=== PATIENT | female | born 1985 | race Caucasian/White ===

== ENCOUNTER 2019-12-11 22:04 | Inpatient (IN) | payer OTHER, SELFPAY ==
--- NOTE | ~2019-12-11 | US_ITS ---
EXAMINATION: US OB limited EXAM DATE: 12/11/2019 23:18 INDICATION: Decreased movement, no audible heart rate. Third trimester. TECHNIQUE: Pelvic obstetrical transabdominal sonogram was performed by a technologist. There are mu ltiple grayscale and Doppler images available for interpretation. There are no earlier studies of th is gestation for comparison. FINDINGS: There is a third trimester intrauterine gestation without heart tones or motion . Fetus is in vertex presentation. There is ascites. There is a posterior fundally located plac enta. No retroplacental hemorrhage. IMPRESSION: demise. Reviewed, dictated and finalized at location G. IMPRESSION: demise.
[2019-12-12] VITALS (63 sets, daily range): BP systolic 85–143; BP diastolic 47–103; PULSE 55–195; TEMP 36.8–37.4; O2SAT 95–100; BMI 26.6
--- NOTE | 2019-12-12 00:18 | LDADM ---
This patient, Kayleigh Kaufman, was admitted to Labor/Delivery/Recovery 109 on 12/11/19 at 22:04. Plans for labor, pain management and were discussed with patient. Patient/family oriented to hospital policies and general routines including ID bracelet, bed and alarms, visiting hours, pain management, procedures, bathroom and other care routines, personal items, smoking policy, room service/diet and guest tray routines, infant security routines, and visiting hours. Patient/Family are encouraged to report perceived risks to care and to ask questions if they do not understand what they are told or what they should do. See OBIX for further documentation.
[2019-12-12 00:20] LABS: Basophils Percent Auto 0.2 % (0.2-1.2); Eosinophils Absolute Auto 0.1 K/mm3 (0-0.3); Hematocrit 37.5 % (37.0-47.0); Hemoglobin 13.2 g/dL (12.0-15.0); Immature Granulocyte Absolute 0.05 K/mm3 (0.00-0.031); Immature Granulocyte Percent A 0.6 % (0-0.5); Lymphocytes Percent Auto 25.2 % (18.3-44.2); Mean Corpuscular HGB Conc 35.2 g/dl (32-36); Mean Corpuscular Hemoglobin 31.4 pg (26-34); Mean Corpuscular Volume 89.3 fl (80-100); Mean Platelet Volume 10.3 fl (7.4-10.4); Monocytes Absolute Auto 0.5 K/mm3 (0.1-0.6); Monocytes Percent Auto 5.9 % (2.6-8.5); Neutrophils Absolute Auto 5.9 K/mm3 (1.3-6.7); Neutrophils Percent Auto 67.1 % (45.5-73.1); Platelet Count Result 211 k/mm3 (150-375); White Blood Count 8.7 K/mm3 (4.5-10.0)
[2019-12-12] MEDS: MISOPROSTOL 50 MCG TABLET VAGINAL ×2 (00:28→04:33)
[2019-12-12 00:35] LABS: Glucose 101 mg/dL (65-105)
[2019-12-12 01:03] LABS: Free T4 Free Thyroxine 1.08 ng/mL (0.78-2.19)
[2019-12-12 01:15] LABS: HIV 1/2 Ab P24 Ag Result Negative (Negative)
[2019-12-12 06:58] LABS: Rapid Plasma Reagin Non-Reactive (NonReactive)
--- NOTE | 2019-12-12 07:57 | WPDOBADMIT ---
Obstetrics - Admit Note Admission Note: record reviewed. No pertinent additions to the history and/or any subsequent changes in the physical findings that are not consistent with the expected course of the were found. Additions to the history and/or subsequent changes in the physical findings follow. Here with demise at 32 wks with known with Down syndrome. Patient and appropriately grieving. Had 2 doses of cytotec overnight. Now 2-/-2/ with thick old bloody fluid. Start Pitocin.
[2019-12-12] MEDS: OXYTOCIN 30 UNITS/NS 500 ML 30 UNITS/500 ML BAG 125 UNITS IV CONT (08:20)
[2019-12-12] MEDS: LACTATED RINGERS 1,000 ML 125 ML IV CONT (08:20)
[2019-12-12] MEDS: ONDANSETRON INJ 4 MG/2 ML VIAL IV PUSH (09:58)
--- NOTE | 2019-12-12 10:12 | PM.OBPRVD ---
OB - Delivery Note Procedure Delivery date: 12/12/19 events: Labor Induction Intrapartal events: None Induction method: AROM, per misoprostol protocol and per pitocin protocol Delivery monitor: external uterine Route of delivery: Laceration description: None Specimen: Yes (placenta) Estimated blood loss (mL): 50 Anesthesia type: Epidural Disposition: floor [place] Baby Weeks of gestation at delivery: 32 gender: Male presentation: vertex Placenta delivery description: Spontaneous cord vessel description: 3 Vessels score one minute: 0 score five minutes: 0
--- NOTE | 2019-12-12 10:13 | PM.OBDSVD ---
DS: Diagnosis Discharge Diagnosis (1) 32 weeks gestation of : Code(s): Z3A.32 - 32 weeks gestation of Status: Acute (2) IUFD (intrauterine ): Status: Acute (3) Trisomy 21 of fetus in current [place] : Code(s): O35.1XX0 - Maternal care for (suspected) chromosomal abnormality in fetus, not applicable or unspecified Status: Acute OB - DS: Summary OB Procedures : Ultrasound OB Procedures Intrapartum: Spontaneous Vag Delivery OB Procedures: : None Peripartum Data Delivery Method: Natural Vaginal Laceration description: None complications: none Status at Discharge Functional status at discharge: independent ambulation Overall status at discharge: patient is progressing back to baseline Time Spent with Patient Time attestation: Total time spent providing and/or coordinating discharge services: DS: Data Data Completed and Pending Labs on day of discharge: Labs from last 24 hours 12/11/19 12/11/19 12/11/19 23:55 23:55 23:55 WBC RBC Hgb Hct MCV MCH MCHC RDW Plt Count MPV Immature Gran % (Auto) Neut % (Auto) Lymph % (Auto) [place] % (Auto) Eos % (Auto) Baso % (Auto) Lymph # (Auto) [place] # (Auto) Eos # (Auto) Baso # (Auto) Abs Immat Gran (auto) Absolute Neuts (auto) Absolute Nucleated RBC Nucleated RBC % LA PTT Screen dRVVT Screen dRVVT Additional Test Lupus Anticoag Interp Glucose TSH Free T4 Beta-2-GPI IgG Ab Pending Beta-2-GPI IgA Ab Pending Beta-2-GPI IgM Ab Pending Anti-Cardiolipin IgG Ab Anti-Cardiolipin IgA Ab Anti-Cardiolipin IgM Ab RPR CMV IgG Ab Pending CMV IgM Ab Pending HIV 1&2 Ab/P24 Ag 4thGn Negative Blood Type A Positive Antibody Screen Negative KB Hemoglobin Negative 12/11/19 12/11/19 12/11/19 23:55 23:55 23:55 WBC RBC Hgb Hct MCV MCH MCHC RDW Plt Count MPV Immature Gran % (Auto) Neut % (Auto) Lymph % (Auto) [place] % (Auto) Eos % (Auto) Baso % (Auto) Lymph # (Auto) [place] # (Auto) Eos # (Auto) Baso # (Auto) Abs Immat Gran (auto) Absolute Neuts (auto) Absolute Nucleated RBC Nucleated RBC % LA PTT Screen dRVVT Screen dRVVT Additional Test Lupus Anticoag Interp Glucose TSH Free T4 1.08 Beta-2-GPI IgG Ab Beta-2-GPI IgA Ab Beta-2-GPI IgM Ab Anti-Cardiolipin IgG Ab Pending Anti-Cardiolipin IgA Ab Pending Anti-Cardiolipin IgM Ab Pending RPR Non-reactive CMV IgG Ab CMV IgM Ab HIV 1&2 Ab/P24 Ag 4thGn Blood Type Antibody Screen KB Hemoglobin 12/11/19 12/11/19 12/11/19 23:55 23:55 23:55 WBC 8.7 RBC 4.20 Hgb 13.2 Hct 37.5 MCV 89.3 MCH 31.4 MCHC 35.2 RDW 12.0 Plt Count 211 MPV 10.3 Immature Gran % (Auto) 0.6 H Neut % (Auto) 67.1 Lymph % (Auto) 25.2 [place] % (Auto) 5.9 Eos % (Auto) 1.0 Baso % (Auto) 0.2 Lymph # (Auto) 2.20 [place] # (Auto) 0.5 Eos # (Auto) 0.1 Baso # (Auto) 0.0 Abs Immat Gran (auto) 0.05 H Absolute Neuts (auto) 5.9 Absolute Nucleated RBC 0.0 Nucleated RBC % 0.0 LA PTT Screen Pending dRVVT Screen Pending dRVVT Additional Test Pending Lupus Anticoag Interp Pending Glucose 101 TSH 3.030 Free T4 Beta-2-GPI IgG Ab Beta-2-GPI IgA Ab Beta-2-GPI IgM Ab Anti-Cardiolipin IgG Ab Anti-Cardiolipin IgA Ab Anti-Cardiolipin IgM Ab RPR CMV IgG Ab CMV IgM Ab HIV 1&2 Ab/P24 Ag 4thGn Blood Type Antibody Screen KB Hemoglobin Discharge Plan Discharge Attending physician on discharge: Tia Whitehead Consulting providers: Bg Cruz Discharging Clinician: Tia Whitehead Anticipated Discharge Date/Time: 12/13/19 07:1
--- NOTE | 2019-12-12 15:06 | PC.NURSE ---
1506- called, pt and want to be discharged home. Order received to discharge around dinner. Pt given all mementos, filled out share paperwork, and has had pictures taken.
--- NOTE | 2019-12-12 17:33 | PC.NURSE ---
1710-Pt and sleeping, woke her and told her to let me know when they are ready to leave that they can stay and sleep as long as they want.
[2019-12-15 03:42] LABS: Lupus dRVVT 1:1 Mix Interpreta Not Indicated; Lupus dRVVT Screen 35 sec (<=45); PTT-LA Screen 31 sec (<=40)
[2019-12-15 14:04] LABS: CMV IgG Antibody <0.60 U/mL (<0.60)
[2019-12-16 02:38] LABS: Anti Cardio Antibody IgM 15 MPL (<=12); Anti Cardiolipin Antibody IgA <11 APL (<=11); Anti Cardiolipin Antibody IgG <14 GPL (<=14)
[2019-12-18 09:09] LABS: CMV IgM Antibody <30.00 AU/mL (<30.00)
== END 2019-12-12 18:00 | disposition home or self-care (01) | DRG 807 ==
LOC: ANHOBPP 23:38 → ANHLDR 23:39 → ANHOBPP 12-12 09:53
PROVIDERS: Admitting Provider Obstetrics & Gynecology; Visit Provider Obstetrics & Gynecology Gynecology
DX: O36.4XX0 Maternal care for intrauterine death, not applicable or unspecified (principal); Z37.1 Single stillbirth; Z3A.32 32 weeks gestation of pregnancy; O35.1XX0 Maternal care for (suspected) chromosomal abnormality in fetus, not applicable or unspecified
CPT/HCPCS: 36415; 76815; 82947; 84439; 84443; 85025; 85460; 85613; 85730; 86146; 86147; 86592; 86644; 86645; 86703; 86850; 86900; 86901; 88307; A9270; G0432; J2405; J2590; J2795; J3010; J7120

== ENCOUNTER → 2020-05-14 15:35 | Outpatient (CLI) | payer OTHER, SELFPAY ==
--- NOTE | ~2020-05-14 | US_ITS ---
EXAMINATION: US OB transvaginal DATE: 05/14/2020 16:17 INDICATION: First trimester dating, history of spontaneous TECHNIQUE: Real-time pelvic transabdominal and transvaginal ultrasound was performed. COMPARISON: None. FINDINGS: The uterus measures 11 x 6.4 x 7.5 cm. There is an intrauterine gestational sac. There is a 1.2 x 1.4 x 1.0 cm complex hypoechoic area adjacent to the gestational sac. A yolk sac is identifie d. heart motion is identified measuring 130 beats per minute (bpm) by M-mode Doppler. The crown rump length measures 10 mm, which correlates with an estimated gestational age of 7 weeks and 1 day(s) (+/-) 5 day(s). The ovaries are not visualized however no adnexal abnormality is seen. There is trace free fluid in t he pelvis. IMPRESSION: 1. Live intrauterine with an estimated gestational age of 7 weeks and 1 day(s) (+/-) 5 day( s) and an estimated delivery date of 12/30/2020. 2. Small subchorionic hematoma. Reviewed, dictated and finalized at location A. IMPRESSION: 1. Live intrauterine with an estimated gestational age of 7 weeks and 1 day(s) (+/-) 5 day(s) and an estimated delivery date of 12/30/2020. 2. Small subchorionic hematoma.
== END ==
PROVIDERS: PCP Family Medicine; Visit Provider Obstetrics & Gynecology Gynecology
DX: O26.21 Pregnancy care for patient with recurrent pregnancy loss, first trimester (principal); Z3A.00 Weeks of gestation of pregnancy not specified
CPT/HCPCS: 76817

== ENCOUNTER 2020-05-23 16:44 | Outpatient (CLI) | payer OTHER, SELFPAY ==
--- NOTE | ~2020-05-23 | US_ITS ---
EXAMINATION: US OB <= 14 weeks fetus EXAM DATE: 05/23/2020 17:37 INDICATION: , vaginal bleeding. Recent demise. 1st trimester. TECHNIQUE: Pelvic obstetrical transabdominal sonogram was performed by a technologist. There are mu ltiple grayscale and Doppler images available for interpretation. Comparison is made to prior examina tion from 05/14/2020. FINDINGS: Uterus measures 14.6 x 6.2 x 9.4 cm. There is intrauterine gestation sac. pole with heart rate confirmed at 171 beats per minute. The 1.7 cm crown-rump length corresponds to estimated gestational age by ultrasound of 8 weeks 1 day with an EDC by ultrasound of 01/01. Yolk sac is ident ified. There is a small subchorionic hematoma measuring 1.2 x 2.2 x 1.3 cm. Right ovary is morpholo gically normal, left not identified. IMPRESSION: Live intrauterine gestation age by ultrasound 8 weeks 1 day with persistent small subcho rionic hematoma. Reviewed, dictated and finalized at location A. IMPRESSION: Live intrauterine gestation age by ultrasound 8 weeks 1 day with p ersistent small subchorionic hematoma.
== END 2020-05-23 16:45 | disposition home or self-care (01) ==
PROVIDERS: PCP Family Medicine; Visit Provider Nurse Practitioner
DX: O26.851 Spotting complicating pregnancy, first trimester (principal)
CPT/HCPCS: 36415; 76801; 84702

== ENCOUNTER → 2020-05-31 16:03 | Outpatient (CLI) | payer OTHER, SELFPAY ==
--- NOTE | ~2020-05-31 | US_ITS ---
EXAMINATION: US OB limited EXAM DATE: 05/31/2020 16:24 INDICATION: Subchorionic hemorrhage . 1st trimester.. TECHNIQUE: Pelvic obstetrical transabdominal sonogram was performed by a technologist. There are mu ltiple grayscale and Doppler images available for interpretation. Comparison is made to prior examina tion from 05/23/2020. FINDINGS: Uterus measures 13.9 x 6.6 x 9.5 cm. There is intrauterine gestation sac. pole with heart rate confirmed at 163 beats per minute. Again there is a subchorionic hemorrhage, with interv al decrease in thickness and echogenicity, now appears essentially anechoic. This measures 1.9 cm josephine meter by 0.3 cm in thickness. IMPRESSION: Decrease in thickness, echogenicity of subchorionic hemorrhage. Reviewed, dictated and finalized at location A.
== END ==
PROVIDERS: Visit Provider Obstetrics & Gynecology Gynecology
DX: O36.8910 Maternal care for other specified fetal problems, first trimester, not applicable or unspecified (principal); Z3A.00 Weeks of gestation of pregnancy not specified
CPT/HCPCS: 76815

== ENCOUNTER → 2020-07-02 13:54 | Outpatient (CLI) | payer OTHER, SELFPAY ==
--- NOTE | ~2020-07-02 | US_ITS ---
US OB limited 07/02/2020 14:32 Indication: Follow up subchorionic hemorrhage Procedure: Real-time Limited obstetrical ultrasound Comparison: 05/31/2020 Findings: Uterus measures 14.5 x 2.1 x 12.2 cm. There is an intrauterine with heart r ate of 149 BPM. There is a small subchorionic hemorrhage measuring 2.5 x 1.1 x 0.7 cm. Amniotic fluid is subjectively normal. Impression: 1: Single living intrauterine with heart rate of 149 BPM. 2: Small subchorionic hemorrhage. Reviewed, dictated and finalized at location A. ECT EXECUTIVE Impression: 1: Single living intrauterine with heart rate of 149 BPM. 2: Small subchorionic hemorrhage.
== END ==
PROVIDERS: Visit Provider Obstetrics & Gynecology Gynecology
DX: O36.8910 Maternal care for other specified fetal problems, first trimester, not applicable or unspecified (principal); Z3A.00 Weeks of gestation of pregnancy not specified
CPT/HCPCS: 76815

== ENCOUNTER 2020-11-18 20:01 | Observation (INO) | payer OTHER, SELFPAY ==
[2020-11-18 20:14] VITALS: TEMP 36.8
[2020-11-18 20:15] VITALS: BMI 28.8
--- NOTE | 2020-11-18 20:15 | OBADM ---
This patient, Kayleigh Kaufman, admitted to the OB room OB Post 116 for observation. Patient/family oriented to hospital policies and general routines including ID bracelet, bed and alarms, visiting hours, pain management, procedures, bathroom and other care routines, personal items, smoking policy, room service/diet, and visiting hours. Patient/Family are encouraged to report perceived risks to care and to ask questions if they do not understand what they are told or what they should do.
--- NOTE | 2020-11-18 20:20 | PC.NURSE ---
Pt to OB desk stating she feels as if something is off . Pt states she has had decreased movement today. States she has not been sleeping well and has had a stress at work. Pt tearful on arrival. On arrival to room pt states she lost a baby at 32 weeks one year ago and this has made her very anxious during this . Pt appears distraught and is tearful. Placed on monitor. Abdomen soft and non tender. Pt admits to cramping intermittent today.
--- NOTE | 2020-11-18 20:48 | PC.NURSE ---
Dr. Whitehead notified of pt admission and assessment. Orders received.
[2020-11-18 21:00] VITALS: BP 105/80; PULSE 68
[2020-11-18] MEDS: NIFEdipine 10 MG CAPSULE PO ×2 (21:05→23:11)
[2020-11-18 22:00] VITALS: BP 113/67; PULSE 69
--- NOTE | 2020-11-19 01:11 | PC.NURSE ---
Dr. Whitehead advised pt still having contractions. Pt dozing off at times. Appears comfortable. Pt feels occasional contraction. Will give Terbutaline. Pt and dozing in room with lights out.
[2020-11-19] MEDS: TERBUTALINE SULFATE 1 MG/ML VIAL 0.25 MG SUB-Q (01:25)
[2020-11-19 01:26] VITALS: BP 109/69; PULSE 66
--- NOTE | 2020-11-19 03:21 | PC.NURSE ---
Dr. Whitehead updated. Orders received. Pt no longer tearful and appears relaxed.
--- NOTE | 2020-11-22 00:06 | PM.OBTRLD ---
OB - Triage/Final Diagnosis Visit Information Reason for evaluation: decreased movement and other ( contractions) Comments/Additional reasons for admission: I have assessed the risk for this patient, Kayleigh Kaufman, and determined that she would benefit from observation care.
== END 2020-11-19 02:45 | disposition home or self-care (01) ==
PROVIDERS: Admitting Provider Obstetrics & Gynecology Gynecology; PCP Family Medicine; Visit Provider Obstetrics & Gynecology Gynecology
DX: O36.8130 Decreased fetal movements, third trimester, not applicable or unspecified (principal); Z3A.34 34 weeks gestation of pregnancy
CPT/HCPCS: 96372; A9270; G0378; G0379; J3105

== ENCOUNTER 2020-12-06 16:43 | Outpatient (RCR) | payer OTHER, SELFPAY ==
[2020-11-08 15:30] VITALS: BP 108/67; PULSE 86
[2020-11-15 17:39] VITALS: BP 112/71; PULSE 83
[2020-11-22 08:17] VITALS: BP 109/69; PULSE 80
[2020-11-29 13:07] VITALS: BP 100/70; PULSE 72
[2020-12-06 17:13] VITALS: BP 112/64; PULSE 67
== END 2020-12-24 11:28 | disposition home or self-care (01) ==
LOC: ANHOBOP 16:43
PROVIDERS: PCP Family Medicine; Visit Provider Obstetrics & Gynecology Gynecology
DX: O36.63X0 Maternal care for excessive fetal growth, third trimester, not applicable or unspecified (principal); O40.3XX0 Polyhydramnios, third trimester, not applicable or unspecified; Z3A.32 32 weeks gestation of pregnancy; Z3A.33 33 weeks gestation of pregnancy; O36.8130 Decreased fetal movements, third trimester, not applicable or unspecified; Z3A.34 34 weeks gestation of pregnancy; Z3A.35 35 weeks gestation of pregnancy; Z3A.36 36 weeks gestation of pregnancy
CPT/HCPCS: 59025

== ENCOUNTER 2020-12-15 16:07 | Observation (INO) | payer OTHER, SELFPAY ==
[2020-12-15] VITALS (9 sets, daily range): BP systolic 104–119; BP diastolic 66–73; PULSE 60–80; O2SAT 97–98; BMI 29.6
[2020-12-15 17:18] LABS: Basophils Percent Auto 0.3 % (0.2-1.2); Eosinophils Percent Auto 0.3 % (0-4.4); Hematocrit 36.1 % (37.0-47.0); Hemoglobin 12.3 g/dL (12.0-15.0); Immature Granulocyte Absolute 0.05 K/mm3 (0.00-0.031); Immature Granulocyte Percent A 0.5 % (0-0.5); Lymphocytes Absolute Auto 1.77 K/mm3 (0.9-3.2); Mean Corpuscular HGB Conc 34.1 g/dl (32-36); Mean Corpuscular Hemoglobin 31.4 pg (26-34); Mean Corpuscular Volume 92.1 fl (80-100); Mean Platelet Volume 11.4 fl (7.4-10.4); Monocytes Absolute Auto 0.6 K/mm3 (0.1-0.6); Monocytes Percent Auto 5.3 % (2.6-8.5); Neutrophils Percent Auto 76.6 % (45.5-73.1); Platelet Count Result 185 k/mm3 (150-375); Red Blood Count 3.92 M/mm3 (4.2-5.4); Red Cell Distribution Width 12.4 % (11.5-14.5); White Blood Count 10.4 K/mm3 (4.5-10.0)
[2020-12-15 17:26] LABS: Add Urine Microscopic? YES; Appearance Urine Cloudy (Clear); Bacteria Urine Trace /hpf; Bilirubin Urine Negative (Negative); Blood Urine Negative (Negative); Color Urine Yellow (Yellow); Glucose Urine UA Negative (Negative); Ketones Urine Trace mg/dL (Negative); Leukocyte Esterase Ur Negative LEU/UL (NEGATIVE); Mucus Urine Rare /lpf; Nitrate Urine Negative (Negative); Protein Urine Negative (Negative); RBC Urine 0-2 /hpf (0-2); Specific Grav Ur 1.006 (1.001-1.035); Squamous Epithelial Cell Urine Many /hpf (Few); Transitional Epi Cells Urine Rare /hpf (None Seen); Urobilinogen Urine Negative mg/dL (<2.0); WBC Urine 0-3 /hpf (0-3)
[2020-12-15 17:27] LABS: Anion Gap 5 mmol/L (8-16); Blood Urea Nitrogen 7 mg/dL (7-17); Calcium 9.4 mg/dL (8.4-10.2); Carbon Dioxide 23 mmol/L (22-30); Chloride 106 mmol/L (98-107); Estimated Glomerular Filt Rate > 60; Glucose 75 mg/dL (65-105); Sodium 134 mmol/L (137-145)
--- NOTE | 2021-01-07 10:08 | P.PNOB_ITS ---
OB - Triage/Final Diagnosis Visit Information Comments/Additional reasons for admission: I have assessed the risk for this patient, Kayleigh Kaufman, and determined that she would benefit from observation care. Evaluation Laboratory results: Laboratory Tests 12/15/20 12/15/20 12/15/20 17:04 17:04 17:04 WBC 10.4 H RBC 3.92 L Hgb 12.3 Hct 36.1 L MCV 92.1 MCH 31.4 MCHC 34.1 RDW 12.4 Plt Count 185 MPV 11.4 H Immature Gran % (Auto) 0.5 Neut % (Auto) 76.6 H Lymph % (Auto) 17.0 L [place] % (Auto) 5.3 Eos % (Auto) 0.3 Baso % (Auto) 0.3 Lymph # (Auto) 1.77 [place] # (Auto) 0.6 Eos # (Auto) 0.0 Baso # (Auto) 0.0 Abs Immat Gran (auto) 0.05 H Absolute Neuts (auto) 8.0 H Absolute Nucleated RBC 0.0 Nucleated RBC % 0.0 Sodium 134 L Potassium 4.0 Chloride 106 Carbon Dioxide 23 Anion Gap 5 L BUN 7 Creatinine 0.50 L Estim Creat Clear Calc Not Reportable Estimated GFR > 60 Glucose 75 Calcium 9.4 Urine Color Yellow Urine Appearance Cloudy H Urine pH 7.0 Ur Specific [place] 1.006 Urine Protein Negative Urine Glucose (UA) Negative Urine Ketones Trace Ur Blood (Man) Negative Urine Nitrate Negative Urine Bilirubin Negative Urine Urobilinogen Negative Ur Leukocyte Esterase Negative Urine RBC 0-2 Urine WBC 0-3 Ur Squamous Epith Cells Many H Ur Transition Epith Cell Rare Urine Bacteria Trace Urine Mucus Rare Final Diagnosis (1) Nausea and vomiting during : Code(s): O21.9 - Vomiting of , unspecified Status: Acute (2) False labor: Code(s): O47.9 - False labor, unspecified Status: Acute
== END 2020-12-15 17:55 | disposition home or self-care (01) ==
PROVIDERS: Admitting Provider Obstetrics & Gynecology; PCP Family Medicine; Visit Provider Obstetrics & Gynecology
DX: O21.9 Vomiting of pregnancy, unspecified (principal); O47.9 False labor, unspecified; Z3A.00 Weeks of gestation of pregnancy not specified
CPT/HCPCS: 36415; 80048; 81001; 85025; G0378; G0379

== ENCOUNTER 2020-12-23 09:38 | Inpatient (IN) | payer OTHER, SELFPAY ==
[2020-12-23] VITALS (16 sets, daily range): BP systolic 98–134; BP diastolic 62–74; PULSE 66–87; RESP 16–20; TEMP 36.6–37.1; O2SAT 97; BMI 29.5
--- NOTE | 2020-12-23 10:07 | LDADM ---
This patient, Kayleigh Kaufman, was admitted to Labor/Delivery/Recovery 103 on 12/23/20 at 09:38. Plans for labor, pain management and were discussed with patient. Patient/family oriented to hospital policies and general routines including ID bracelet, bed and alarms, visiting hours, pain management, procedures, bathroom and other care routines, personal items, smoking policy, room service/diet and guest tray routines, infant security routines, and visiting hours. Patient/Family are encouraged to report perceived risks to care and to ask questions if they do not understand what they are told or what they should do. See OBIX for further documentation.
[2020-12-23 10:09] LABS: Basophils Percent Auto 0.3 % (0.2-1.2); Eosinophils Percent Auto 0.3 % (0-4.4); Hematocrit 36.5 % (37.0-47.0); Hemoglobin 12.6 g/dL (12.0-15.0); Immature Granulocyte Absolute 0.03 K/mm3 (0.00-0.031); Immature Granulocyte Percent A 0.3 % (0-0.5); Lymphocytes Percent Auto 17.8 % (18.3-44.2); Mean Corpuscular HGB Conc 34.5 g/dl (32-36); Mean Corpuscular Hemoglobin 30.8 pg (26-34); Mean Corpuscular Volume 89.2 fl (80-100); Mean Platelet Volume 11.4 fl (7.4-10.4); Monocytes Absolute Auto 0.6 K/mm3 (0.1-0.6); Monocytes Percent Auto 6.2 % (2.6-8.5); Neutrophils Absolute Auto 6.8 K/mm3 (1.3-6.7); Neutrophils Percent Auto 75.1 % (45.5-73.1); Platelet Count Result 181 k/mm3 (150-375); Red Blood Count 4.09 M/mm3 (4.2-5.4); Red Cell Distribution Width 12.4 % (11.5-14.5)
[2020-12-23] MEDS: LACTATED RINGERS 1,000 ML 125 ML IV CONT (10:15)
[2020-12-23] MEDS: AMPICILLIN 2 GM/NS 100 ML 2 GM/100 ML BAG IVPB (10:15)
[2020-12-23] MEDS: OXYTOCIN 30 UNITS/NS 500 ML 30 UNITS/500 ML BAG 999 UNITS IV CONT (11:10)
[2020-12-23] MEDS: OXYTOCIN 30 UNITS/NS 500 ML 30 UNITS/500 ML BAG 125 UNITS IV CONT (11:43)
--- NOTE | 2020-12-23 12:04 | WPDOBADMIT ---
Obstetrics - Admit Note Admission Note: record reviewed. No pertinent additions to the history and/or any subsequent changes in the physical findings that are not consistent with the expected course of the were found. Additions to the history and/or subsequent changes in the physical findings follow. The patient was scheduled for medical induction of labor today however she came in in active labor at 8cm. She progressed quickly to complete. Membranes were ruptured with clear fluid noted just prior to pushing. The heart tones are reassuring.
--- NOTE | 2020-12-23 12:04 | PM.OBPRVD ---
OB - Delivery Note Procedure Delivery date: 12/23/20 Procedure: events: Polyhydramnios Intrapartal events: None Induction method: none Delivery monitor: external FHT and external uterine Route of delivery: Laceration Description: Perineal - 2nd Degree Delivery repair: vicryl (3-0) Specimen: Yes (placenta) Quantitative Blood Loss (ml): 225 Anesthesia type: Local Disposition: floor Baby Date of : 12/23/20 Weeks of gestation at delivery: 39 Infant gender: Male Weight (pounds): 8 Weight (ounces): 8 presentation: vertex position: Right Occiput Anterior Placenta delivery description: Spontaneous cord vessel description: 3 Vessels score one minute: 9 score five minutes: 9
--- NOTE | 2020-12-23 12:07 | PM.OBDSVD ---
DS: Admitting Diagnosis Admitting Diagnosis Admitting Diagnosis: IUP 39 wks; polyhydramnios; Labor DS: Discharge Diagnosis Discharge Diagnosis (1) (normal spontaneous vaginal delivery): Code(s): O80 - Encounter for full-term uncomplicated delivery Status: Acute OB - DS: Summary OB Procedures : NST and Ultrasound OB Procedures Intrapartum: Spontaneous Vag Delivery OB Procedures: : None Peripartum Data Delivery Method: Natural Vaginal Laceration Description: Perineal - 2nd Degree complications: none Status at Discharge Functional status at discharge: independent ambulation Overall status at discharge: patient is progressing back to baseline Time Spent with Patient Time attestation: Total time spent providing and/or coordinating discharge services: DS: Data Data Completed and Pending Labs on day of discharge: Labs from last 24 hours 12/23/20 12/23/20 12/23/20 10:03 10:03 10:03 WBC 9.0 RBC 4.09 L Hgb 12.6 Hct 36.5 L MCV 89.2 MCH 30.8 MCHC 34.5 RDW 12.4 Plt Count 181 MPV 11.4 H Immature Gran % (Auto) 0.3 Neut % (Auto) 75.1 H Lymph % (Auto) 17.8 L [place] % (Auto) 6.2 Eos % (Auto) 0.3 Baso % (Auto) 0.3 Lymph # (Auto) 1.60 [place] # (Auto) 0.6 Eos # (Auto) 0.0 Baso # (Auto) 0.0 Abs Immat Gran (auto) 0.03 Absolute Neuts (auto) 6.8 H Absolute Nucleated RBC 0.0 Nucleated RBC % 0.0 RPR Pending Blood Type A Positive Antibody Screen Negative Discharge Plan Discharge Attending physician on discharge: Tia Whitehead Discharging Clinician: Tia Whitehead Anticipated Discharge Date/Time: 12/25/20 12:08 Patient Disposition: Home, Self-Care Activity: may shower and pelvic rest Diet: regular Discharge Instructions: Education: Mom and Baby Guide Given to: Mother Follow-Up: Call your delivering provider's office for an appointment to be seen in: 4 Weeks Mom and baby should come to the [facility] for the follow-up appointment. Appointment Date/Time: December at 10:00 am What to expect at your follow-up visit: Blood Pressure Check Physical Assessment Call [phone] if you are unable to keep your appointment time. BREAST CARE: * Wear a snug supportive bra. * For engorgement discomfort: Breast Feeding: * Apply warm moist washcloths * Express milk as needed to relieve engorgement * Wear loose clothing * For sore nipples: * Identify correct latch-on * Apply warm moist washcloths before and after nursing * Air dry nipples after nursing * May apply Lansin[place] cream to nipples EPISIOTOMY/PERINEAL CARE: * Until bleeding stops, use your mami bottle after urinating * Change your pad frequently throughout the day * You may take sitz baths several times a day (fill your bathtub with warm water and soak for 20 minutes.) Do NOT bathe in the water * No tub baths until seen by your physician - You may shower ACTIVITY: * Rest as much as possible. * Do not exercise or lift anything heavier than your baby (such as laundry or other children.) * Avoid stairs or driving as much as possible. * Do not put anything into the vagina. No douching, tampons, or sexual activity until seen by physician. NOTIFY PHYSICIAN IF YOU HAVE ANY QUESTIONS OR IF ANY OF THE FOLLOWING SYMPTOMS OCCUR: * If your episiotomy becomes red, swollen, or more painful than what you have experienced in the hospital. * If your vaginal bleeding becomes foul smelling. * If your vaginal bleeding becomes more heavy than a period or if your bleeding changes from pink to bright red. However, you may pass an occasional walnut-sized clot once or twice for the first week . * If you experience a sharp, shooting pain in you calves. * If you discover a hard, reddened area on your breas
[2020-12-23] MEDS: IBUPROFEN 600 MG TABLET PO (12:18)
[2020-12-23] MEDS: BENZOCAINE 20% AER SPR (*SP) 56 GM CAN 1 SPRAY TOPICAL (13:45)
[2020-12-23] MEDS: WITCH HAZEL 40 PADS 1 PAD TOPICAL (13:45)
[2020-12-23] MEDS: IBUPROFEN 600 MG TABLET (23:44)
[2020-12-24 05:10] VITALS: BP 99/55; PULSE 57; PULSE 72; RESP 14; RESP 16; TEMP 36.9; O2SAT 97
[2020-12-24 05:46] LABS: Hematocrit 31.5 % (37.0-47.0); Hemoglobin 10.6 g/dL (12.0-15.0)
[2020-12-24] MEDS: WITCH HAZEL 40 PADS 1 PAD TOPICAL (07:23)
[2020-12-24] MEDS: MULTIVIT/MIN/PREN/FOL AC/IRON TABLET 1 TAB PO (07:23)
[2020-12-24] MEDS: DOCUSATE SODIUM 100 MG CAPSULE PO ×2 (07:23→16:22)
[2020-12-24] MEDS: IBUPROFEN 600 MG TABLET PO ×2 (07:23→16:22)
[2020-12-24] MEDS: BENZOCAINE 20% AER SPR (*SP) 56 GM CAN 1 SPRAY TOPICAL (07:23)
[2020-12-24 07:37] VITALS: BP 92/57; PULSE 68; RESP 18; TEMP 36.3
--- NOTE | 2020-12-24 08:02 | PM.OBPNVD ---
OB - PN: Subj Subjective Date/time seen: 12/24/20 08:02 Patient comments: no complaints and pain well controlled baby status: doing well OB - PN: Obj Data Labs CBC & Chem 7: 12/24/20 05:13 Labs: Laboratory Results - last 24 hr 12/23/20 12/23/20 12/24/20 10:03 10:03 05:13 WBC 9.0 RBC 4.09 L Hgb 12.6 10.6 L Hct 36.5 L 31.5 L MCV 89.2 MCH 30.8 MCHC 34.5 RDW 12.4 Plt Count 181 MPV 11.4 H Immature Gran % (Auto) 0.3 Neut % (Auto) 75.1 H Lymph % (Auto) 17.8 L [place] % (Auto) 6.2 Eos % (Auto) 0.3 Baso % (Auto) 0.3 Lymph # (Auto) 1.60 [place] # (Auto) 0.6 Eos # (Auto) 0.0 Baso # (Auto) 0.0 Abs Immat Gran (auto) 0.03 Absolute Neuts (auto) 6.8 H Absolute Nucleated RBC 0.0 Nucleated RBC % 0.0 Blood Type A Positive Antibody Screen Negative OB - PN A/P Plan day: 1 Plan: routine care Comments: plans condoms until vasectomy Time Spent With Patient Time: Total time spent is greater than 50% in coordination of care (as documented) at patient's floor/unit and/or counseling patient: Exam : Bimanual exam- vagina & uterus: other (Uterus firm, nt @U)
--- NOTE | 2020-12-24 08:15 | PC.NURSE ---
Mother called out for assist with feeding. Mother reports infant has been eagerly latching most feedings, mother has had pain with all feedings. Both nipples are reddened and small line bruise noted to left nipple. keeps tongue up and curled back. Advised mother to wait until see can see tongue is down before attempting latch. Reviewed may have been latching with nipple under tongue causing bruising and pain. Reviewed infant feeding cues, frequencies, duration of feedings, feeding elimination flow sheet, and signs of adequate intake. Demonstrated stimulation techniques to wake infant for feeding. Assisted with to breast. Reviewed positioning/alignment in cross cradle, holding breast in ?U? hold and guided asymmetrical latch on. Mother reports she has been using cradle positioning. able to latch correctly. Infant nursed eagerly, with steady draws and frequent swallowing noted. Reviewed signs of a correct latch, effective nursing and suck swallow ratio. would slip to shallow latch, mother reports tenderness. Demonstrated how to adjust latch more deeply while feeding. Mother reports she can feel change in latch and has no tenderness. Nipple care reviewed of lanolin after feedings, warm compresses and gel pads as needed. Suggested mother stimulate while feeding to increase stimulate, increase intake and to assist with maintaining deep latch. Instructed mother to call out for RN assistance if she is unable to latch for feeding or she has discomfort with nursing.
[2020-12-24 10:34] LABS: Rapid Plasma Reagin Non-Reactive (NonReactive)
[2020-12-24 20:30] VITALS: BP 103/70; PULSE 67; RESP 14; TEMP 36.7; O2SAT 99
[2020-12-25] MEDS: IBUPROFEN 600 MG TABLET PO ×2 (06:07→11:35)
[2020-12-25] MEDS: BENZOCAINE 20% AER SPR (*SP) 56 GM CAN 1 SPRAY TOPICAL (07:19)
[2020-12-25] MEDS: WITCH HAZEL 40 PADS 1 PAD TOPICAL (07:20)
[2020-12-25] MEDS: DOCUSATE SODIUM 100 MG CAPSULE PO (07:20)
[2020-12-25] MEDS: MULTIVIT/MIN/PREN/FOL AC/IRON TABLET 1 TAB PO (07:20)
[2020-12-25 08:00] VITALS: BP 102/59; PULSE 65; PULSE 67; RESP 18; TEMP 36.3
--- NOTE | 2020-12-25 09:00 | PC.NURSE ---
Patient was given the opportunity to view the discharge video Mother & Baby Care, The First Two Weeks and to ask questions. Patient declined viewing the video and has been given the mother/baby guide for home reference.
--- NOTE | 2020-12-25 09:25 | PC.NURSE ---
Mother is able to independently latch infant with appropriate positioning/alignment. She reports slight nipple discomfort on right, stating she is more comfort able with latching to left breast. Mother is feeding as required and waking to feed if needed. has had at least 8 effective feedings in the past 24 hours, and is currently meeting outcomes for weight, output, jaundice and feeding frequencies. Mother states she feels confident to continue effective at home. Reviewed transition to breast milk, signs of adequate intake, and engorgement/relief. Instructed to call ICP if intake/output less than required. Reviewed regular medications mother is taking. Information provided per Haley. Reviewed community resources on the [facility] and in the Mom/Baby guide. Information on outpatient services provided. Mother has no further questions at this time.
--- NOTE | 2020-12-25 10:56 | PC.NURSE ---
Self care and infant care discharge instructions given including follow up visit date and time. Mother verbalized understanding. No questions or concerns voiced. Very pleasant and cooperative. FOB at side.
[2020-12-25] MEDS: DIBUCAINE 1% OINTMENT 30 GM TUBE 1 APPLIC TOPICAL (11:36)
[2020-12-26 10:44] VITALS: BP 110/68; PULSE 75; RESP 20; TEMP 36.9; O2SAT 100
== END 2020-12-25 11:41 | disposition home or self-care (01) | DRG 807 ==
LOC: ANHLDR 12-26 10:58 → ANHOB2 12-26 10:58
PROVIDERS: Admitting Provider Obstetrics & Gynecology Gynecology; PCP Family Medicine; Visit Provider Obstetrics & Gynecology
DX: O40.3XX0 Polyhydramnios, third trimester, not applicable or unspecified (principal); Z37.0 Single live birth; O70.1 Second degree perineal laceration during delivery; O99.824 Streptococcus B carrier state complicating childbirth; Z3A.39 39 weeks gestation of pregnancy
CPT/HCPCS: 36415; 85014; 85018; 85025; 86592; 86850; 86900; 86901; 88307; A9270; J0290; J2590; J7120

== ENCOUNTER 2023-03-30 07:19 | Outpatient (CLI) | payer OTHER, SELFPAY ==
--- NOTE | ~2023-03-30 | XR_ITS ---
EXAMINATION: XR foot LT min 3V DATE: 03/30/2023 07:45 INDICATION: Left great toe pain TECHNIQUE: Dorsoplantar, lateral, and 2 oblique views of the left foot were obtained. COMPARISON: None. FINDINGS: There is an acute, traumatic tuft fracture of the first distal phalanx. Soft tissue swellin g surrounds the fracture. The joint spaces are normal. No additional fracture is identified. IMPRESSION: 1. Acute tuft fracture of the first distal phalanx, open fracture not excluded. Reviewed, dictated and finalized at location A.
== END 2023-03-30 07:20 ==
LOC: MICIMG 07:21
PROVIDERS: PCP Family Medicine; Visit Provider Family Medicine
DX: S92.422A Displaced fracture of distal phalanx of left great toe, initial encounter for closed fracture (principal); X58.XXXA Exposure to other specified factors, initial encounter
CPT/HCPCS: 73630

== ENCOUNTER 2023-03-30 09:37 | Emergency (ER) | payer OTHER, SELFPAY ==
[2023-03-30 10:03] VITALS: BP 136/87; PULSE 78; RESP 18; TEMP 36.6; O2SAT 100
--- NOTE | 2023-03-30 15:44 | PC.NURSE ---
RN spoke with Casi CADE concerning POC update. Waiting on podiatry to return call for consult. Pt updated, pt tearful due to wait time.
[2023-03-30 15:46] VITALS: BP 116/72; PULSE 78; RESP 18; TEMP 37; O2SAT 100
--- NOTE | 2023-03-30 16:00 | ED.LOWEXIN ---
HPI - Extremity Injury (Lower) General Chief Complaint: Extremity Injury, Lower Stated Complaint: left foot injury Time Seen by Provider: 03/30/23 11:27 History of Present Illness HPI Narrative: 37-year-old female reports for evaluation for pain to her left great toe after she dropped a chair on her chair yesterday at 6:30 PM. Patient reports bruising beneath her toenail. States it was hurting significantly until it started spontaneously draining on the proximal lateral nail fold which significantly decreased her pain. She denies fever, vomiting, surrounding erythema or purulent drainage. She spoke with her PCP who ordered an x-ray showing a tuft fracture and advised her to come to the ED for further evaluation Related Data Home Medications Medication Instructions Recorded Confirmed cholecalciferol (vitamin D3) 50 50 mcg PO DAILY 12/20/20 03/23/23 mcg (2,000 unit) capsule (Vitamin D3) Allergies Allergy/AdvReac Type Severity Reaction Status Date / Time sertraline AdvReac Intermediate fatigue, Verified 03/30/23 10:08 depression Review of Systems Review of Systems: CONSTITUTIONAL: Denies fever, chills EYES: Denies visual changes, redness, or discharge. ENT: Denies rhinorrhea, congestion, sore throat, or otalgia. CARDIOVASCULAR: Denies chest pain, palpitations, or edema. RESPIRATORY: Denies cough or dyspnea. GASTROINTESTINAL: Denies abdominal pain, nausea, vomiting, or diarrhea. GENITOURINARY: Denies dysuria or hematuria. SKIN: Denies rash or itching. MUSCULOSKELETAL: See HPI NEUROLOGIC: Denies headache, numbness, dizziness, or weakness. PSYCHIATRIC: Denies anxiety or depression. [facility] Past Medical History Medical History IUFD (intrauterine ) (normal spontaneous vaginal delivery) Surgical History Surgical History H/O esophagogastroduodenoscopy 06.20.2012 gastritis Hx of colonoscopy 06.20.2012 benign lymphoid hypertrophy Family History Family History Mother Autoimmune disorder Grandparent Malignant neoplasm of prostate Social History Social History (Reviewed 03/30/23 @ 16:00 by REBECCA Overton Smoking status: Never smoker Alcohol intake: current Substance use: never Substance use type: does not use Lack of Transportation: No Lack of Food: Never True Current Housing: I Have Housing Concerned About Future Housing: No Difficulty Paying Gas/Electric Bills: No Difficulty Paying for Meds: No Currently Unemployed: No Difficulty w/ Childcare or Family Care: No Gender identity (if verbalized by the patient): Female Sexual Orientation (if Verbalized by the Patient): Straight or Heterosexual Spiritual care concerns: No Exam Narrative: GENERAL: Well-appearing, in no acute distress. Patient resting comfortably in exam bed. She is pleasant and conversational HEAD: Normocephalic NECK: Supple. CHEST: No respiratory distress. Clear to auscultation, no adventitious breath sounds. HEART: Regular rate and rhythm. No murmur heard. Normal peripheral pulses. ABDOMEN: Soft, nontender, normal active bowel sounds. EXTREMITIES: Left great toe with generalized tenderness and edema. There is a large subungual hematoma that is spontaneously draining out of the proximal lateral nail fold which has been dislodged from the nail bed. He nail is otherwise intact and largely immobile. No erythema, purulent drainage. Limited flexion secondary to pain but full extension of toe appreciated. Cap refill less than 2. DP pulse 2+. Sensation intact. SKIN: Warm, dry, no rash. NEURO: No focal deficits. Alert and oriented x3. PSYCH: Normal mood and affect. Course Vital Signs Vital signs: Vital Signs Temperature 98 F 03/30/23 10:03 Pulse Rate 78 03/30/23 10:03 Respiratory Ra
== END 2023-03-30 16:20 | disposition home or self-care (01) ==
PROVIDERS: Emergency Provider Physician Assistant; PCP Family Medicine
DX: S92.425B Nondisplaced fracture of distal phalanx of left great toe, initial encounter for open fracture (principal); S90.212A Contusion of left great toe with damage to nail, initial encounter; W20.8XXA Other cause of strike by thrown, projected or falling object, initial encounter
CPT/HCPCS: 99283

== ENCOUNTER 2024-02-17 15:18 | Outpatient (CLI) | payer OTHER, SELFPAY ==
--- NOTE | ~2024-02-17 | US_ITS ---
EXAMINATION: US pelvic complete w TV INDICATION: Menorrhagia Comparison:No prior studies for comparison. TECHNIQUE: Multiple transabdominal and endovaginal sonographic images of the pelvis performed. FINDINGS: The uterus measures 8.4 x 5.6 x 4.7 cm. The endometrial complex measures 5 mm. The right ovary measures 2.2 x 2.3 x 2 cm and the left ovary measures 2.5 x 1.9 x 2.6 cm. There are small follicles in each ovary. Normal doppler signal in both ovaries. There is no free fluid in the pelvis. There are no abnormal masses seen on either side. IMPRESSION: 1. Unremarkable pelvic ultrasound. Reviewed, dictated and finalized at location B.
== END 2024-02-17 15:19 ==
PROVIDERS: PCP Family Medicine; Visit Provider Obstetrics & Gynecology Gynecology
DX: N92.0 Excessive and frequent menstruation with regular cycle (principal)
CPT/HCPCS: 76830; 76856

== ENCOUNTER 2024-03-20 02:29 | Day surgery (SDC) | payer OTHER, SELFPAY ==
[2024-03-15 13:41] VITALS: BMI 23.1
--- NOTE | 2024-03-15 13:49 | PC.NURSE ---
Report to the Outpatient Waiting Room, entrance under the green pavilion located off [facility], at time _0600__ on date _03/20/24_. Planned Procedure Time: _0730. Time changes happen often and if your time is changed the preop area will call you the afternoon before. - You and your visitor will be asked to self-screen and do not enter if you have any COVID symptoms. - A mask is optional within the hospital at this time. Patients may have clear liquids (water, carbonated beverages, clear teas, apple juice) until 3 hours prior to surgery with a maximum of 20 ounces. - No food from midnight until time of surgery - Infants may have breast milk until 4 hours before surgery, infant formula 6 hours prior to surgery. - Children will be allowed to drink immediately following surgery. If applicable, please bring a bottle or sippy cup to assist with drinking. Juice, water, soda, and popsicles are readily available. For infants on formula, please bring formula the day of surgery. Pacifiers are allowed. Take the following medications with a SIP of water the morning of surgery: NONE DO NOT STOP ANY OF YOUR OTHER PRESCRIPTION MEDICATIONS PRIOR TO SURGERY ?EXCEPT THE FOLLOWING Medications to discontinue per physician VITAMIN D3 Date to take last dose___03/17/24 __ Please no make-up, nail persian, hairspray, perfume, deodorant, or body powder the day of surgery. No jewelry (including any body piercings) or valuables the day of surgery, leave them at home. Please take a shower or bath the night before, or the morning of, surgery with an antibacterial soap. Wear comfortable, loose fitting clothing. Children are encouraged to wear pajamas. - Jewelry must be removed prior to entering the operating room. Rings and piercings that are not removed may be cut off. - The hospital will not accept responsibility for valuables. - Please leave all valuables, including medications, at home the day of surgery. If you are going home after surgery, a licensed commercial driver's license driver must drive you home. - NO public transportation without another adult if you receive anesthesia. - We recommend that an adult stay with you for 24 hours following discharge. - We also recommend that you do not drive, make important decision, drink alcoholic beverages, or take any drugs that were not prescribed by your health care provider for at least 24 hours after your discharge time. For Pediatric surgeries, we recommend two adults accompany the child home. Follow any additional instructions given to you from your surgeon. If you or anyone in your household have experienced Covid symptoms in the past week, please notify your surgeon or the nurse liaison at the phone number below for possible testing. Telephone instructions given to _PATIENT___and asked if any additional questions and then verbalized understanding. Patient advised to call surgeon office or pre surgery nurse liaison [phone] if any additional questions.
[2024-03-20 06:06] VITALS: BMI 24.3
[2024-03-20 06:07] VITALS: BP 108/75; PULSE 60; RESP 16; TEMP 36.4; O2SAT 100
[2024-03-20] MEDS: LACTATED RINGERS 1,000 ML 30 ML IV CONT (06:40)
[2024-03-20] MEDS: ACETAMINOPHEN 500 MG TABLET 1000 MG PO (06:49)
--- NOTE | 2024-03-20 06:49 | WPDANESEPPF ---
Anes - Initial Pre Proc Eval Procedure: Operation Date: 03/20/24 07:30 Proposed Procedures p Hysteroscopy, Dilation and Curettage - Tia Whitehead MD Date/Time: 03/20/24 06:49 Surgeon: Tia Whitehead MD Pre Op Diagnosis: menorrhagia Patient Data Age: 38 Gender: F Height: 1.68 m Weight: 65 kg Allergies Allergy/AdvReac Type Severity Reaction Status Date / Time sertraline AdvReac Intermediate fatigue, Verified 03/15/24 13:37 depression Home Medications Medication Instructions Recorded Confirmed Type cholecalciferol (vitamin D3) 50 50 mcg PO DAILY 12/20/20 03/16/24 History mcg (2,000 unit) capsule (Vitamin D3) ciclopirox 8 % topical solution 1 applic topical QHS 4 weeks #6.6 01/07/23 03/16/24 Rx mL amitriptyline 10 mg tablet 10 mg PO QHS #90 tabs 04/26/23 03/16/24 Rx sumatriptan succinate 50 mg tablet See Rx Instructions PO .COMPLEX 03/15/24 03/16/24 History PRN Migraine Headache Patient hx anesthesia problems: none Family hx anesthesia problems: none Results Review: All pre-operative results and documents have been reviewed as part of the pre-operative evaluation. [facility] Past Medical History Medical History IUFD (intrauterine ) (normal spontaneous vaginal delivery) Surgical History Surgical History H/O esophagogastroduodenoscopy 06.20.2012 gastritis Hx of colonoscopy 06.20.2012 benign lymphoid hypertrophy Family History Family History Mother Autoimmune disorder Grandparent Malignant neoplasm of prostate Social History Social History Smoking status: Never smoker Alcohol intake: current Drinks per week: 3 Substance use: never Substance use type: does not use Lack of Transportation: No Lack of Food: Never True Current Housing: I Have Housing Concerned About Future Housing: No Difficulty Paying Gas/Electric Bills: No Difficulty Paying for Meds: No Currently Unemployed: No Difficulty w/ Childcare or Family Care: No Living arrangements: with family Gender identity (if verbalized by the patient): Female Sexual Orientation (if Verbalized by the Patient): Straight or Heterosexual Spiritual care concerns: No Anes - Eval Final PreProcedure Day of Procedure 03/20/24 06:49 Patient weight: normal Heart: regular rate and rhythm Lungs: clear to auscultation Airway: Mallampati scale class II Neurological: alert and oriented Last oral intake: >/= 8 hours ASA classification: II Emergent: no Anesthetic plan: proceed Anesthesia type and monitoring: general GIVS and standard monitoring Results Review: All pre-operative results and documents have been reviewed as part of the pre-operative evaluation. Anxiety by hawk love regency meridianramone. Informed Consent: The patient's anesthetic plan and its attendant risks and benefits were discussed with the patient/family/POA. Questions were solicited and answers provided to the satisfaction of the patient/family/POA.
[2024-03-20 06:55] LABS: BEDSIDEPREGUCG Negative
--- NOTE | 2024-03-20 07:17 | WPDHPUPDATE1 ---
History and Physical Update Update Date/Time: 03/20/24 07:17 History and Physical has been reviewed, including an updated exam of the patient. There are NO changes in the patient's condition. Risks, benefits, and alternatives have been discussed and questions answered. Patient agrees to proceed with procedure.
--- NOTE | 2024-03-20 07:17 | PM.HPGS ---
History of Present Illness History of Present Illness Consent: Risks, benefits, and alternatives have been discussed and questions answered. Patient agrees to proceed with procedure. Chief complaint: menorrhagia Narrative: Kayleigh Kaufman is a 38 year old female With a change in her menstrual cycles last childbirth. Her cycles became quite heavy. Ultrasound is normal. Recommend to proceed with D&C hysteroscopy to proceed with further workup. Risks of infection, bleeding, perforation, and possible pathology are reviewed. Patient voices understanding and agrees to proceed. Review of Systems Review of Systems: not repeated day of surgery; patient states no changes in status PMFSH Past Medical History Medical History (Updated 03/20/24 @ 07:19 by Tia Whitehead MD) IUFD (intrauterine ) 2020 at 32 weeks (normal spontaneous vaginal delivery) X3 Surgical History Surgical History H/O esophagogastroduodenoscopy 06.20.2012 gastritis Hx of colonoscopy 06.20.2012 benign lymphoid hypertrophy Family History Family History Mother Autoimmune disorder Grandparent Malignant neoplasm of prostate Social History Social History Smoking status: Never smoker Alcohol intake: current Drinks per week: 3 Substance use: never Substance use type: does not use Lack of Transportation: No Lack of Food: Never True Current Housing: I Have Housing Concerned About Future Housing: No Difficulty Paying Gas/Electric Bills: No Difficulty Paying for Meds: No Currently Unemployed: No Difficulty w/ Childcare or Family Care: No Living arrangements: with family Gender identity (if verbalized by the patient): Female Sexual Orientation (if Verbalized by the Patient): Straight or Heterosexual Spiritual care concerns: No Meds Home Medications and Allergies Home Medications Medication Instructions Recorded Confirmed Type cholecalciferol (vitamin D3) 50 50 mcg PO DAILY 12/20/20 03/20/24 History mcg (2,000 unit) capsule (Vitamin D3) ciclopirox 8 % topical solution 1 applic topical QHS 4 weeks #6.6 01/07/23 03/16/24 Rx mL amitriptyline 10 mg tablet 10 mg PO QHS #90 tabs 04/26/23 03/16/24 Rx sumatriptan succinate 50 mg tablet See Rx Instructions PO .COMPLEX 03/15/24 03/16/24 History PRN Migraine Headache Allergies Allergy/AdvReac Type Severity Reaction Status Date / Time sertraline AdvReac Intermediate fatigue, Verified 03/20/24 06:54 depression Vital Signs Vital Signs - 24 hr 03/20/24 06:07 Temperature 97.5 F L Pulse Rate 60 Respiratory Rate 16 Blood Pressure 108/75 Pulse Oximetry 100 Oxygen Delivery Room Air Exam Const: General: healthy appearing and alert Orientation/consciousness: patient oriented x3 Resp: Effort & Inspection: normal respiratory effort GI: GI Palp: Yes Soft to palpation, No Tenderness to palpation present (GI) and No Palpable mass present : External Female Exam: normal external appearance Speculum Exam - Vagina: normal appearance of the vagina and normal vaginal discharge Speculum Exam - Cervix: normal appearance of the cervix Bimanual exam- vagina & uterus: uterine size normal and consistency normal Bimanual Exam- Adnexa, other: normal adnexae and No adnexal tenderness Neuro: General: patient oriented x3 Assessment and Plan Assessment and plan (1) Menorrhagia: Code(s): N92.0 - Excessive and frequent menstruation with regular cycle Status: Acute Assessment and Plan: plan to proceed with D&C hysteroscopy
[2024-03-20] MEDS: KETOROLAC 15 MG/ML VIAL (*BKC) IV PUSH (07:51)
--- NOTE | 2024-03-20 07:53 | P.OP_ITS ---
Procedure Note - Detailed Date of Procedure 03/20/24 Pre-op Diagnosis menorrhagia Post-op Diagnosis Same Procedure Performed D&C hysteroscopy Surgeon Tia Whitehead MD Anesthesia MAC Findings uterus sounds to 10cm and appears grossly normal Description of Procedure The patient is taken to the operating room and placed under anesthesia in the dorsal lithotomy position. She was prepped and draped in the usual sterile fashion. Reseda speculum was placed in the vagina and the cervix grasped on the anterior lip with a tenaculum. The uterus is sounded to 10cm. The diagnostic hysteroscope was placed and with no abnormalities noted it is removed. The uterus is sharply curetted with a OO sharp curette until a good uterine cry was noted in all areas. Instruments were then removed. Sponge, needle, and instrument counts are correct per the OR staff. The patient was awakened from anesthesia and taken to recovery in stable condition. Estimated Blood Loss 5 Drains No Packing No Pathology Yes ( Endometrial curettings) Complications No immediate complications Condition Stable Disposition PACU
[2024-03-20 07:57] VITALS: BP 98/59; PULSE 68; RESP 14; O2SAT 98
[2024-03-20 08:25] VITALS: BP 98/63; PULSE 62
== END 2024-03-20 08:55 | disposition home or self-care (01) ==
PROVIDERS: PCP Family Medicine; Visit Provider Obstetrics & Gynecology Gynecology
PROC: 0U5B8ZZ Destruction of Endometrium, Via Natural or Artificial Opening Endoscopic (ICD-10-PCS; CPT 58563; principal; 2024-03-20 07:30)
DX: N92.0 Excessive and frequent menstruation with regular cycle (principal); Z98.890 Other specified postprocedural states; Z80.42 Family history of malignant neoplasm of prostate
CPT/HCPCS: 58558; 88305; A9270; J1885; J2250; J2704; J3010; J7120

== ENCOUNTER 2025-06-18 15:58 | Outpatient (CLI) | payer OTHER, SELFPAY ==
--- NOTE | ~2025-06-18 | MM_ITS ---
EXAMINATION: MM screening jamir BI w tasha HISTORY: Screening TECHNIQUE: Craniocaudal and mediolateral oblique 3-D tomosynthesis images were obtained and synthetic 2-D images were generated. CAD analysis was submitted and interpreted. COMPARISON: No prior mammogram is available for comparison at this institution. BREAST PARENCHYMAL COMPOSITION: Dense: The breasts are heterogeneously dense, which may obscure small masses FINDINGS: There is no evidence of suspicious mass, calcification, or architectural distortion to suggest malignancy in either breast. There has been no suspicious interval change. IMPRESSION: 1. No mammographic evidence of malignancy. 2. Recommend routine screening mammography in one year. BI-RADS Category 1: Negative Reviewed, dictated and finalized at location C. INVESTIGATOR
--- OUTSIDE RECORDS SUMMARY | 2025-06-18 16:01 | XMS_ITS | Clinical Summary ---
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 Gender Identity Not on file Sexual Orientation Not on file Plan of Treatment Health Maintenance Due Date Last Done Comments Cervical Cancer Screening Pa p Smear (Age 30 to 64) Every 3 Years 1983 Annual Physical 12/23/1986 Hepatitis C 12/23/2001 DTaP, Tdap and Td Vaccines ( 1 - Tdap) 12/23/2002 Hepatitis B Vaccines (1 of 3 - 19+ 3-dose series) 12/23/2002 HPV Vaccines (1 - 3-dose SCD M series) 12/23/2010 Cervical Cancer Screening Pa p with HPV Testing (Age 30 to 64) Every 5 Years 12/23/2013 Cervical Cancer Screening with HPV 12/23/2013 Mammogram Screening 2023 COVID-19 Vaccine (2024-2 6 season) 2025 Influenza Adult (#1) 2025 Hepatitis A Vaccines Aged Out No long er eligible based on patient's age to complete this topic Meningococcal B Vaccine Aged Out No l onger eligible based on patient's age to complete this topic Meningococcal Vaccine Aged Out No artem pantera eligible based on patient's age to complete this topic Pneumococcal Vaccine: Pediat rics (0 to 5 Years) and At-Risk Patients (6 to 49 Years) Aged Out No longer eligible b ased on patient's age to complete this topic RSV Immunizations Under 20 Months Aged Out No longer eligible based on patient's age to complete this topic Insurance [facility] Care Teams Mold Clamper Relationship Specialty Start Date End Date Liyah Ding MD PCP - General FAMILY PRACTICE 06/13/19
--- OUTSIDE RECORDS SUMMARY | 2025-06-18 16:01 | XMS_ITS | Clinical Summary ---
Author Organization [facility] [address] [place] [address] Phone Care Team Providers Care Clinical Transplant Coordinator Name Role Phone Liyah Ding MD Primary Care Provider Medications vit-iron fumarate-fa (KELBY ) 28 mg iron- 800 mcg Tablet Take 1 Tablet by mouth daily. Active buPROPion HCL (WELLBUTRIN XL) 300 mg Extended Release 24 hour tablet Take 1 Tablet (300 mg) by mouth daily in the morning. 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 Gender Identity Not on file Sexual Orientation Not on file Last Filed Vital Signs Vital Sign Reading Time Taken Comments Blood Pressure 102/65 09/29/2019 8:54 AM OVEN TECHNICIAN Pulse 61 09/29/2019 8:54 AM OVEN TECHNICIAN Temperature - - Respiratory Rate 16 09/29/2019 8:54 AM OVEN TECHNICIAN Oxygen Saturation - - Inhaled Oxygen Concentration - - Weight 68 kg (150 lb) 09/29/2019 8:54 AM OVEN TECHNICIAN Height 167.6 cm (5' 6) 09/29/2019 8:54 AM OVEN TECHNICIAN Body Mass Index 24.21 09/29/2019 8:54 AM OVEN TECHNICIAN Plan of Treatment Health Maintenance Due Date Last Done Comments DTAP/TDAP/TD VACCINES (1 - Tdap) 12/23/2002 HEPATITIS B VACCINES (1 of 3 - 19+ 3-dose series) 12/07 HPV/Cotest (21-29) 12/23/2004 HPV VACCINES (1 - 3-dose SCDM series) 12/23/2010 CERVICAL CANCER SCREENING 12/23/2013 HPV/Cotest (30-65) 12/23/2013 PAP SMEAR 12/23/2013 BREAST CANCER SCREENING 2023 INFLUENZA VACCINE (#1) 2025 Insurance OPTIONS PPO [id number] [facility] Address: [facility] [id number] [place] [address] RX [facility] [employer] (INTERNAL) [facility] Internal Plans Care Teams Clinical Transplant Coordinator Relationship Specialty Start Date End Date Liyah Ding MD PCP - General Family Practice 09/29/19
== END 2025-06-18 15:59 | disposition home or self-care (01) ==
LOC: ANHFOHIMG 16:00
PROVIDERS: PCP Family Medicine; Visit Provider Obstetrics & Gynecology Gynecology
DX: Z12.31 Encounter for screening mammogram for malignant neoplasm of breast (principal)
CPT/HCPCS: 77063; 77067